=== PATIENT | female | born 2000 | race American Indian/Alaskan Native ===

== ENCOUNTER 2019-07-05 11:26 | Emergency (ER) | payer SELFPAY ==
[2019-07-05 11:59] VITALS: BP 120/78
--- NOTE | 2019-07-05 11:59 | Event Note ---
ED Screening Note Date of service: 07/05/19 Time: 11:57 ED Screening Note: 18 y/o female comes in for painful urination times 1 week. No vaginal discharge. Sexually active with men Protected. This initial assessment/diagnostic orders/clinical plan/treatment(s) is/are subject to change based on patients health status, clinical progression and re- assessment by fellow clinical providers in the ED. Further treatment and workup at subsequent clinical providers discretion. Patient/guardian urged not to elope from the ED as their condition may be serious if not clinically assessed and managed. Initial orders include:
[2019-07-05 12:51] LABS: Bacteria,Urine 1+ /HPF (Negative); Bilirubin,Urine NEG (Negative); Blood,Urine LG (Negative); Color,Urine Amber (Yellow); Mucus,Urine 3+ /HPF
[2019-07-05 12:55] LABS: WBC,Urine > 182.0 /HPF (0.0-6.0)
[2019-07-05 13:02] LABS: HCG Qualitative,Urine Negative (Negative)
--- NOTE | 2019-07-05 13:51 | Emergency Department Report ---
ED Female HPI - General Chief complaint: Urogenital-Female Stated complaint: DISCOMFORT IN VAGINAL AREA Time Seen by Provider: 07/05/19 11:56 Source: patient Mode of arrival: Ambulatory Limitations: No Limitations - History of Present Illness Initial comments: Eleno is a healthy 18-year-old female who presents with burning upon urination. She also has a large rectal hemorrhoid which she believes needs to be cut out. While she was she had a smaller hemorrhoid which is treated with cream. She has moderately severe pain. Large amount of swelling at the rectum. Gradual onset of the symptoms 2 days ago. MD Complaint: dysuria, other (large rectal hemorrhoid) -: Gradual, days(s) (2) Severity: mild, moderate Quality: dull Consistency: constant Worsens with: urination Are you Now?: No Associated Symptoms: other (large rectal hemorrhoid) - Related Data Previous Rx's Medication Instructions Recorded Last Taken Type Docusate Sodium [Colace] 100 mg PO BID 14 Days #28 capsule 07/05/19 Unknown Rx cephALEXin [Keflex] 500 mg PO QID 5 Days #20 capsule 07/05/19 Unknown Rx oxyCODONE /ACETAMINOPHEN [Percocet 1 tab PO Q6HR PRN #15 tablet 07/05/19 Unknown Rx 5/325] Allergies Allergy/AdvReac Type Severity Reaction Status Date / Time No Known Allergies Allergy Unverified 07/05/19 11:27 ED Review of Systems ROS: Stated complaint: DISCOMFORT IN VAGINAL AREA Other details as noted in HPI Constitutional: denies: fever, malaise Respiratory: denies: cough, shortness of breath Gastrointestinal: denies: abdominal pain, nausea, vomiting Genitourinary: dysuria Skin: rash, lesions ED Past Medical Hx - Past Medical History Previous Medical History?: No - Surgical History Past Surgical History?: No - Social History Smoking Status: Never Smoker Substance Use Type: None - Medications Home Medications: Home Medications Medication Instructions Recorded Confirmed Last Taken Type Docusate Sodium [Colace] 100 mg PO BID 14 Days #28 capsule 07/05/19 Unknown Rx cephALEXin [Keflex] 500 mg PO QID 5 Days #20 capsule 07/05/19 Unknown Rx oxyCODONE /ACETAMINOPHEN [Percocet 1 tab PO Q6HR PRN #15 tablet 07/05/19 Unknown Rx 5/325] ED Physical Exam - General Limitations: No Limitations General appearance: alert, in no apparent distress - Head Head exam: Present: atraumatic, normocephalic - Eye Eye exam: Present: normal appearance. Absent: scleral icterus, conjunctival injection - ENT ENT exam: Present: mucous membranes moist - Neck Neck exam: Present: normal inspection, full ROM - Respiratory Respiratory exam: Absent: respiratory distress - Rectal Rectal exam: Present: other (large thrombosed rectal hemorrhoid 3 cm in length) - Extremities Exam Extremities exam: Present: normal inspection, tenderness - Neurological Exam Neurological exam: Present: alert, oriented X3 - Psychiatric Psychiatric exam: Present: normal affect, normal mood - Skin Skin exam: Present: warm, dry, intact, normal color ED Course Vital Signs 07/05/19 11:57 Temperature 98.5 F Pulse Rate 93 H Respiratory 18 Rate Blood Pressure 120/78 O2 Sat by Pulse 97 Oximetry - I & D Buttocks Type of Procedure: Complex Site: thrombosed rectal hemorrhoid Blade Size: 11 I & D Procedure: betadine prep, sterile dressing applied Progress: Eleno provided verbal informed consent. She understood the risk alternatives BENEFITS of this procedure. Complications: None I used 2 inch silk tape to provide traction. Betadine preparation prepared the field. I used 2% Xylocaine administered with 20-gauge needle and 3 mL at the base. 1 mL at the vertex of the hemorrhoid. I made a 2.5 cm elliptical incision. I was able to remove multiple small clots. After the procedure the skin was soft. The hemorrhoid had deflated. Initially the hemorrhoid was indurated. Now the skin is deflated and mobile. ED Medical Decision Making - Lab Data Laboratory Results - last 24 hr 07/05/19 12:14 Urine Color Mariam Urine Turbidity Cloudy Urine pH 5.0 Ur Specific [place] 1.029 Urine Protein 100 mg/dl Urine Glucose (UA) Neg Urine Ketones Neg Urine Blood Lg Urine Nitrite Neg Urine Bilirubin Neg Urine Urobilinogen 4.0 Ur Leukocyte Esterase Lg Urine WBC (Auto) > 182.0 H Urine RBC (Auto) 108.0 U Epithel Cells (Auto) 3.0 Urine Bacteria (Auto) 1+ Urine Mucus 3+ Urine HCG, Qual Negative - Medical Decision Making 1. dysuria: cephalexin for UTI confirmed by urinalysis. UPT negative 2. thrombosed hemorrhoid: incision and removal to thrombus successful without complication: tetanus booster provided, rx: percocet, stool softeners, sitz baths Critical care attestation.: If time is entered above; I have spent that time in minutes in the direct care of this critically ill patient, excluding procedure time. ED Disposition Clinical Impression: UTI (urinary tract infection), External thrombosed hemorrhoids Disposition: TO HOME OR SELFCARE Is pt being admited?: No Does the pt Need Aspirin: No Condition: Stable Instructions: Hemorrhoids (ED), Urinary Tract Infection in Women (ED) Additional Instructions: Please use sitz baths as instructed. Prescriptions: Docusate Sodium [Colace] 100 mg PO BID 14 Days #28 capsule cephALEXin [Keflex] 500 mg PO QID 5 Days #20 capsule oxyCODONE /ACETAMINOPHEN [Percocet 5/325] 1 tab PO Q6HR PRN #15 tablet PRN Reason: Pain Referrals: [facility] [Outside] - 3-5 Days Forms: Work/School Release Form(ED)
== END 2019-07-05 15:29 | disposition home or self-care (01) ==
LOC: ED 11:26
DX: K64.5 Perianal venous thrombosis (principal)
CPT/HCPCS: 81001; 81025; 87086

== ENCOUNTER 2019-09-07 17:24 | Emergency (ER) | payer SELFPAY ==
[2019-09-07 18:30] VITALS: BP 128/83
--- NOTE | 2019-09-07 18:30 | Emergency Department Report ---
Stated Complaint: STD TEST/POSS TEST Time Seen by Provider: 09/07/19 18:26 - HPI History of Present Illness: This is a 19-year-old female nontoxic, well in appearance with no signs of distress presents to the ED for STD check. Patient stated that her partner called and said has STD. Patient stated she is asymptotic. Denies any vaginal discharge, testicular pain, or swelling. Patient denies any urinary symptoms. Denies any pelvic pain. Patient denies any fever, chills, headache, nausea, vomiting, chest pain or shortness of breathe. denies any other symptoms or complaints. Denies any allergies or PMH. - Exam Physical Exam: no vaginal discharge. no abdominal or pelvic pain. no urinary symptoms. no back pains. MSE screening note: Focused history and physical exam performed. Due to findings the following was ordered: ED Medical Decision Making - Medical Decision Making This is a 19-year-old female that presents with nonmedical emergency complaint. Patient is just requested for a STD test. Patient denies any symptoms. I gave patient many different referrals to follow-up with STD concerns. Patient was instructed to Follow-up with a primary care doctor in 3-5 days or if symptoms worsen and continue return to emergency room as soon as possible. At time of discharge, the patient does not seem toxic or ill in appearance. No acute signs of distress noted. Patient agrees to discharge treatment plan of care. No further questions noted by the patient. ED Disposition for MSE Clinical Impression: Possible exposure to STD Disposition: Z-07 MED SCREENING EXAM-LEFT Is pt being admited?: No Does the pt Need Aspirin: No Condition: Stable Instructions: Safe Sex (ED) Additional Instructions: Follow-up with referrals that was prescribed to you in the ED in 3-5 days or if symptoms worsen and continue return to emergency room as soon as possible. Referrals: PRIMARY CARE, [Referring] - 3-5 Days SHARMILA WHEAT MD [Staff Physician] - 3-5 Days [facility] [Outside] - 3-5 Days [facility] [Outside] - 3-5 Days
== END 2019-09-07 19:01 | disposition left against medical advice (07) ==
LOC: ED 17:24
DX: Z20.2 Contact with and (suspected) exposure to infections with a predominantly sexual mode of transmission (principal)
CPT/HCPCS: 99281

== ENCOUNTER 2021-05-29 20:43 | Emergency (ER) | payer SELFPAY ==
[2021-05-29 21:37] VITALS: BP 119/78
[2021-05-29 21:56] LABS: Basophils % (Auto) 0.3 % (0.0-1.8); Eosinophils # (Auto) 0.1 K/mm3 (0.0-0.4); Eosinophils % (Auto) 1.4 % (0.0-4.3); Hematocrit 46.4 % (30.3-42.9); Hemoglobin 14.7 gm/dl (10.1-14.3); Lymphocytes # (Auto) 1.9 K/mm3 (1.2-5.4); Lymphocytes % (Auto) 29.3 % (13.4-35.0); Mean Corpuscular HGB Conc 32 % (30-34); Mean Corpuscular Volume 86 fl (79-97); Monocytes # (Auto) 0.5 K/mm3 (0.0-0.8); Monocytes % (Auto) 8.3 % (0.0-7.3); Platelet Count 207 K/mm3 (140-440); Red Blood Count 5.38 M/mm3 (3.65-5.03); Red Cell Distribution Width 13.7 % (13.2-15.2)
== END 2021-05-29 23:00 | disposition left against medical advice (07) ==
LOC: ED 20:43
DX: M79.642 Pain in left hand (principal); M25.551 Pain in right hip; Z53.21 Procedure and treatment not carried out due to patient leaving prior to being seen by health care provider
CPT/HCPCS: 36415; 84703; 85025